=== PATIENT | male | born 1985 | race Caucasian/White ===

== ENCOUNTER 2018-01-21 01:55 | Emergency (ER) | payer SELFPAY ==
[2018-01-21] MEDS ORDERED: MORPHINE 4 MG/ML SYR ONE (02:25)
[2018-01-21] MEDS ORDERED: ONDANSETRON 4 MG/2 ML VIAL ONE (02:25)
[2018-01-21] MEDS ORDERED: NA CHLORIDE 0.9% 1,000 ML ONE (02:25)
[2018-01-21 02:55] LABS: Urine Blood 2+ (NEG); Urine Glucose NEGATIVE (NEG); Urine Protein NEGATIVE (NEG); Urine Specific Gravity >1.030 (1.005-1.030); Urine pH 5.5 (5.0-7.0)
[2018-01-21 02:55] LABS: Absolute Lymphocytes (CBC) 3.2 K/uL (0.7-4.9); Absolute Monocytes 1.4 K/uL (0.1-1.3); Absolute Neutrophil 15.9 K/uL (1.8-8.0); Basophils % 0.3 % (0-1.3); Hematocrit 43.4 % (39.6-49.0); Lymphocytes % 15.5 % (15.3-44.8); MCH 30.6 pg (27.0-35.0); MCV 89.5 fL (80-100); MPV 7.9 fL (7.6-11.3); Monocytes % 6.6 % (3.3-12.3); RBC Red Blood Cell Count 4.85 M/uL (4.33-5.43)
[2018-01-21 03:13] LABS: Albumin 4.3 g/dL (3.4-5.0); Bilirubin Direct 0.1 mg/dL (0-0.2); Bilirubin Total 0.4 mg/dL (0.2-1.0); Potassium 3.9 mmol/L (3.5-5.1); Protein, Total 7.8 g/dL (6.4-8.2)
[2018-01-21] MEDS ORDERED: NA CHLORIDE 0.9% 50 ML IV ONE (03:32)
[2018-01-21] MEDS ORDERED: KETOROLAC 30 MG/ML INJ ONE (03:32)
[2018-01-21] MEDS ORDERED: TAMSULOSIN 0.4 MG SR CAP ONE (03:32)
[2018-01-21] MEDS ORDERED: CEFTRIAXONE 1000 MG/VIAL ONE (03:32)
[2018-01-21 03:43] LABS: Calcium Oxalate Crystals- Ur FEW (NONE SEEN); Urine Bacteria <20 /HPF (NONE SEEN); Urine Culture Reflex Order NOT NEEDED; Urine Mucus HEAVY /HPF (NONE SEEN); Urine RBC <5 /HPF (NONE SEEN)
--- NOTE | 2018-01-21 04:48 | ER ---
Nurse's Notes [facility] Name: Toan Ochoa Age: 32 yrs Sex: Male : 1985 Arrival Date: 01/21/2018 Time: 01:57 Bed 6 Private MD: Diagnosis: Hydronephrosis with renal and ureteral calculous obstruction;Elevated white blood cell count Presentation: 01/21 02:06 Presenting complaint: Patient states: he woke up with right sided pain about 2 weeks bb ago he passed a kidney stone on the left side he is also having difficulty urinating. Transition of care: patient was not received from another setting of care. Onset of symptoms was January 21, 2018. Risk Assessment: Do you want to hurt yourself or someone else? Patient reports no desire to harm self or others. Initial Sepsis Screen: Does the patient meet any 2 criteria? No. Patient's initial sepsis screen is negative. Does the patient have a suspected source of infection? No. Patient's initial sepsis screen is negative. Care prior to arrival: None. 02:06 Method Of Arrival: Ambulatory bb 02:06 Acuity: SVITLANA 3 bb Historical: - Allergies: 02:10 No Known Allergies; bb - Home Meds: 02:10 None [Active]; bb - PMHx: 02:10 Kidney stones; bb - PSHx: 02:10 None; bb - Immunization history:: Adult Immunizations up to date. - Social history:: Smoking status: Patient uses tobacco products, smokes one pack cigarettes per day. Patient uses alcohol, occasionally. Patient/guardian denies using street drugs. - Ebola Screening: : No symptoms or risks identified at this time. Screenin:13 Abuse screen: Denies threats or abuse. Denies injuries from another. Nutritional ak1 screening: No deficits noted. Tuberculosis screening: No symptoms or risk factors identified. Fall Risk None identified. Assessment: 02:13 General: Appears uncomfortable, Behavior is cooperative. Pain: Complains of pain in ak1 right lower abd, right flank. Neuro: No deficits noted. Cardiovascular: No deficits noted. Respiratory: No deficits noted. GI: No signs and/or symptoms were reported involving the gastrointestinal system. : Reports pain in right flank(s). EENT: No signs and/or symptoms were reported regarding the EENT system. Derm: No signs and/or symptoms reported regarding the dermatologic system. Musculoskeletal: No signs and/or symptoms reported regarding the musculoskeletal system. 03:12 Reassessment: LAB ALERT VALUE WBC 20.7, NOTIFIED. bp Vital Signs: 02:10 BP 137 / 91; Pulse 46; Resp 18 S; Temp 98.6(O); Pulse Ox 97% on R/A; Weight 72.57 kg bb (R); Height 5 ft. 10 in. (177.80 cm) (R); Pain 7/10; 02:10 Body Mass Index 22.96 (72.57 kg, 177.80 cm) bb ED Course: 01:57 Patient arrived in ED. ds1 02:09 Triage completed. bb 02:10 Arm band placed on Patient placed in an exam room, on a stretcher, on pulse oximetry. bb Family accompanied patient. 02:13 Gay Zamorano, RN is Primary Nurse. ak1 02:13 Patient has correct armband on for positive identification. Bed in low position. Call ak1 light in reach. Side rails up X 1. Pulse ox on. NIBP on. 02:15 Initial lab(s) drawn, by me, sent to lab. Urine collected: clean catch specimen. ak1 Inserted saline lock: 20 gauge in right antecubital area, using aseptic technique. Blood collected. 02:19 Dakota Arroyo MD is Attending Physician. anita 03:21 CT completed. Pt tolerated procedure poorly. Patient moved to CT via stretcher. Patient eh moved back from CT. 03:29 CT Stone Protocol In Process Unspecified. EDMS 03:42 Patient moved to radiology via stretcher. kw 03:42 X-ray completed. Patient tolerated procedure well. kw 03:42 Patient moved back from radiology. kw 03:42 Abdomen 1 View (KUB) XRAY In Process Unspecified. EDMS 04:34 No provider procedures requiring assistance completed. ak1 04:48 Jan Li MD is Referral Physician. anita 04:58 IV discontinued, intact, bleeding controlled, No redness/swelling at site. Pressure ak1 dressing applied. Administered Medications: 02:23 Drug: Zofran 4 mg Route: IVP; Site: right antecubital; bp 03:21 Follow up: Response: No adverse reaction ak1 02:23 Drug: morphine 4 mg Route: IVP; Site: right antecubital; bp 03:21 Follow up: Response: No adverse reaction ak1 02:23 Drug: NS 0.9% 1000 ml Route: IV; Rate: 1 bolus; Site: right antecubital; bp 05:00 Follow up: IV Status: Completed infusion ak1 03:25 Drug: TORadol 30 mg Route: IVP; Site: right antecubital; cc3 04:33 Follow up: Response: No adverse reaction ak1 03:25 Drug: Flomax 0.4 mg Route: PO; cc3 04:34 Follow up: Response: No adverse reaction ak1 03:30 Drug: Rocephin - (cefTRIAXone) 1 grams Route: IVPB; Infused Over: 30 mins; Site: right ak1 antecubital; 04:57 Follow up: IV Status: Completed infusion ak1 Outcome: 04:48 Discharge ordered by MD. howard 04:58 Discharged to home ambulatory, with family. ak1 04:58 Condition: improved 04:58 Discharge instructions given to patient, family, Instructed on discharge instructions, follow up and referral plans. no drinking with medication, no driving heavy equipment, medication usage, Demonstrated understanding of instructions, follow-up care, medications, Prescriptions given X 4. 04:59 Patient left the ED. ak1 Signatures: Dispatcher [employer] EDMS Dakota Arroyo MD MD cha Hagler, Ervin eh Sanford, Demi ds1 Madeleine Brewster, RN RN Margarita Santana Amber, RN RN ak1 Carlos Plata RN RN Nidia Gallegos cc3
--- NOTE | 2018-01-21 04:48 | EDPHYS ---
Physician Documentation [facility] Name: Toan Ochoa Age: 32 yrs Sex: Male : 1985 Arrival Date: 01/21/2018 Time: 01:57 Bed 6 Private MD: ED Physician Dakota Arroyo HPI: 01/21 03:12 This 32 yrs old Male presents to ER via Ambulatory with complaints of R Side anita Abd Pain. 03:12 The patient complains of pain in the right mid back and right low back. The pain does anita not radiate. Onset: The symptoms/episode began/occurred just prior to arrival. Modifying factors: The symptoms are alleviated by nothing. the symptoms are aggravated by nothing. Associated signs and symptoms: The patient has no apparent associated signs or symptoms. Severity of pain: At its worst the pain was moderate severe in the emergency department the pain is unchanged. The patient has not experienced similar symptoms in the past. Historical: - Allergies: 02:10 No Known Allergies; bb - Home Meds: 02:10 None [Active]; bb - PMHx: 02:10 Kidney stones; bb - PSHx: 02:10 None; bb - Immunization history:: Adult Immunizations up to date. - Social history:: Smoking status: Patient uses tobacco products, smokes one pack cigarettes per day. Patient uses alcohol, occasionally. Patient/guardian denies using street drugs. - Ebola Screening: : No symptoms or risks identified at this time. ROS: 03:13 Constitutional: Negative for fever, chills, and weight loss, Eyes: Negative for injury, anita pain, redness, and discharge, ENT: Negative for injury, pain, and discharge, Neck: Negative for injury, pain, and swelling, Cardiovascular: Negative for chest pain, palpitations, and edema, Respiratory: Negative for shortness of breath, cough, wheezing, and pleuritic chest pain, Abdomen/GI: Negative for abdominal pain, nausea, vomiting, diarrhea, and constipation, Back: Negative for injury and pain, MS/Extremity: Negative for injury and deformity, Skin: Negative for injury, rash, and discoloration, Neuro: Negative for headache, weakness, numbness, tingling, and seizure, Psych: Negative for depression, anxiety, suicide ideation, homicidal ideation, and hallucinations, Allergy/Immunology: Negative for hives, rash, and allergies, Endocrine: Negative for neck swelling, polydipsia, polyuria, polyphagia, and marked weight changes. 03:13 : Positive for flank pain, of the right mid back and right low back. Exam: 03:13 Constitutional: This is a well developed, well nourished patient who is awake, alert, anita and in no acute distress. Head/Face: Normocephalic, atraumatic. Eyes: Pupils equal round and reactive to light, extra-ocular motions intact. Lids and lashes normal. Conjunctiva and sclera are non-icteric and not injected. Cornea within normal limits. Periorbital areas with no swelling, redness, or edema. ENT: Nares patent. No nasal discharge, no septal abnormalities noted. Tympanic membranes are normal and external auditory canals are clear. Oropharynx with no redness, swelling, or masses, exudates, or evidence of obstruction, uvula midline. Mucous membranes moist. Neck: Trachea midline, no thyromegaly or masses palpated, and no cervical lymphadenopathy. Supple, full range of motion without nuchal rigidity, or vertebral point tenderness. No Meningismus. Chest/axilla: Normal chest wall appearance and motion. Nontender with no deformity. No lesions are appreciated. Cardiovascular: Regular rate and rhythm with a normal S1 and S2. No gallops, murmurs, or rubs. Normal PMI, no JVD. No pulse deficits. Respiratory: Lungs have equal breath sounds bilaterally, clear to auscultation and percussion. No rales, rhonchi or wheezes noted. No increased work of breathing, no retractions or nasal flaring. Abdomen/GI: Soft, non-tender, with normal bowel sounds. No distension or tympany. No guarding or rebound. No evidence of tenderness throughout. Male : Normal genitalia with no discharge or lesions. Skin: Warm, dry with normal turgor. Normal color with no rashes, no lesions, and no evidence of cellulitis. MS/ Extremity: Pulses equal, no cyanosis. Neurovascular intact. Full, normal range of motion. Neuro: Awake and alert, GCS 15, oriented to person, place, time, and situation. Cranial nerves II-XII grossly intact. Motor strength 5/5 in all extremities. Sensory grossly intact. Cerebellar exam normal. Normal gait. Psych: Awake, alert, with orientation to person, place and time. Behavior, mood, and affect are within normal limits. 03:13 Back: pain, that is mild, that is moderate, ROM is normal, normal spinal alignment noted, CVA tenderness, that is moderate, is noted on the right. Vital Signs: 02:10 BP 137 / 91; Pulse 46; Resp 18 S; Temp 98.6(O); Pulse Ox 97% on R/A; Weight 72.57 kg bb (R); Height 5 ft. 10 in. (177.80 cm) (R); Pain 7; 02:10 Body Mass Index 22.96 (72.57 kg, 177.80 cm) bb MDM: 02:19 Patient medically screened. [facility] 01/21 02:16 Order name: Basic Metabolic Panel; Complete Time: 03:16 [facility] 01/21 02:16 Order name: CBC with Diff [facility] 01/21 02:17 Order name: Creatinine for Radiology; Complete Time: 03:16 [facility] 01/21 02:17 Order name: Hepatic Function; Complete Time: 03:16 [facility] 01/21 02:17 Order name: Lipase; Complete Time: 03:16 [facility] 01/21 02:27 Order name: Urine Culture [facility] 01/21 02:17 Order name: CT Stone Protocol [facility] 01/21 02:27 Order name: Urine Microscopic Only [facility] 01/21 02:39 Order name: Urine Dipstick--Ancillary (enter results); Complete Time: 03:12 mw2 01/21 03:11 Order name: Abdomen 1 View (KUB) XRAY [facility] 01/21 04:56 Order name: Manual Differential EDNM 01/21 02:17 Order name: IV Saline Lock; Complete Time: 02:17 [facility] 01/21 02:17 Order name: Labs collected and sent; Complete Time: 02:17 [facility] Administered Medications: 02:23 Drug: Zofran 4 mg Route: IVP; Site: right antecubital; bp 03:21 Follow up: Response: No adverse reaction ak1 02:23 Drug: morphine 4 mg Route: IVP; Site: right antecubital; bp 03:21 Follow up: Response: No adverse reaction ak1 02:23 Drug: NS 0.9% 1000 ml Route: IV; Rate: 1 bolus; Site: right antecubital; bp 05:00 Follow up: IV Status: Completed infusion ak1 03:25 Drug: TORadol 30 mg Route: IVP; Site: right antecubital; cc3 04:33 Follow up: Response: No adverse reaction ak1 03:25 Drug: Flomax 0.4 mg Route: PO; cc3 04:34 Follow up: Response: No adverse reaction ak1 03:30 Drug: Rocephin - (cefTRIAXone) 1 grams Route: IVPB; Infused Over: 30 mins; Site: right ak1 antecubital; 04:57 Follow up: IV Status: Completed infusion ak1 Disposition: 01/21/18 04:48 Discharged to Home. Impression: Hydronephrosis with renal and ureteral calculous obstruction, Elevated white blood cell count. - Condition is Stable. - Discharge Instructions: Kidney Stones, Kidney Stones, [id number], Hydronephrosis, Dietary Guidelines to Help Prevent Kidney Stones. - Prescriptions for Tylenol- Codeine #3 300-30 mg Oral Tablet - take 2 tablet by ORAL route every 6 hours As needed; 30 tablet. Zofran 4 mg Oral Tablet - take 1 tablet by ORAL route every 12 hours As needed; 20 tablet. Flomax 0.4 mg Oral Capsule, Sust. Release 24 hr - take 1 capsule by ORAL route once daily 1/2 hour following the same meal each day; 30 capsule. Cipro 500 mg Oral Tablet - take 1 tablet by ORAL route every 12 hours for 7 days; 14 tablet. - Medication Reconciliation Form, Thank You Letter, Antibiotic Education, Prescription Opioid Use form. - Follow up: Private Physician; When: 2 - 3 days; Reason: Recheck today's complaints, Continuance of care, Re-evaluation by your physician. Follow up: Jan Li; When: 2 - 3 days; Reason: Recheck today's complaints, Re-evaluation by your physician. - Problem is new. - Symptoms have improved. Signatures: Dispatcher [employer] EDDakota Maciel MD MD cha Ballard, Brenda RN RN Gay Cutler RN RN akCarlos Crawford, RN RN Nidia Gallegos cc3 Corrections: (The following items were deleted from the chart) 04:59 04:48 01/21/2018 04:48 Discharged to Home. Impression: Hydronephrosis with renal and ak1 ureteral calculous obstruction; Elevated white blood cell count. Condition is Stable. Discharge Instructions: Kidney Stones, Kidney Stones, [id number], Hydronephrosis, Dietary Guidelines to Help Prevent Kidney Stones. Prescriptions for Tylenol-Codeine #3 300-30 mg Oral Tablet - take 2 tablet by ORAL route every 6 hours As needed; 30 tablet, Zofran 4 mg Oral Tablet - take 1 tablet by ORAL route every 12 hours As needed; 20 tablet, Flomax 0.4 mg Oral Capsule, Sust. Release 24 hr - take 1 capsule by ORAL route once daily 1/2 hour following the same meal each day; 30 capsule, Cipro 500 mg Oral Tablet - take 1 tablet by ORAL route every 12 hours for 7 days; 14 tablet. and Forms are Medication Reconciliation Form, Thank You Letter, Antibiotic Education, Prescription Opioid Use. Follow up: Private Physician; When: 2 - 3 days; Reason: Recheck today's complaints, Continuance of care, Re-evaluation by your physician. Follow up: Jan Li; When: 2 - 3 days; Reason: Recheck today's complaints, Re-evaluation by your physician. Problem is new. Symptoms have improved. anita
[2018-01-21 04:56] LABS: Blood Morphology Comment NOT SEEN (NOT SEEN); Platelet Estimate ADEQ
--- NOTE | 2018-01-21 13:37 | RAD REPORT ---
EXAM DESCRIPTION: CT - Stone Protocol - 01/21/2018 6:42 am CLINICAL HISTORY: Right-sided flank pain, history of left-sided kidney stone with passage 3 weeks ea rlier A preliminary report was provided at the time of the study and reviewed prior to final report. Due to hospital wide power failure, all overnight and morning reports have been delayed. COMPARISON: CT study August 2013 TECHNIQUE: Axial 5 mm thick images were obtained without oral or IV contrast. The [id number] span s the entirety of the system including uppermost abdomen and lung bases. All CT scans are performed using dose optimization technique as appropriate and may include automated exposure control or mA/KV adjustment according to patient size. FINDINGS: Mild right-sided hydronephrosis is present secondary to a 3 mm calcification of the distal right ureter. This is just proximal to the UVJ. Right kidney is slightly edematous. No other nonobst ructing calculi. No hydronephrosis on the left. No suspicious renal masses. Isodense masses and pyelo nephritis are not excluded on a stone protocol CT scan. Urinary bladder is contracted limiting detail . No bladder calculus seen. Phleboliths are seen in the pelvis. Imaged portions of the liver, spleen and pancreas show no suspicious findings on non-contrast imaging . No gallbladder or biliary tree abnormality identified. No significant adrenal finding. No suspicious bowel findings. Appendix is normal. No mass or bulky lymphadenopathy. Patient has a very small fat only umbilical hernia name small to mo derate fat only left inguinal hernia. No free air, free fluid or inflammatory stranding. No significant bony abnormality. IMPRESSION: Mild right-sided hydronephrosis secondary to a 3 millimeter distal ureteral calculus at the UVJ. Nonacute findings detailed in the body of the report. Isodense masses and pyelonephritis are not excluded on stone protocol technique.
--- NOTE | 2018-01-21 14:13 | RAD REPORT ---
EXAM DESCRIPTION: RAD - Abdomen 1 View (KUB) - 01/21/2018 3:47 am CLINICAL HISTORY: Right-sided abdominal pain, history of kidney stones Due to a system wide technical malfunction, all overnight and morning reports were delayed. COMPARISON: None. FINDINGS: Bowel gas pattern is non-specific. No obstruction, free air or pneumatosis. Small bowel l oops are prominent. Ileus is certainly possible. No suspicious calcifications. No significant bony findings IMPRESSION: No obstruction, free air or surgically emergent finding. Mild ileus or enteritis are possible.
== END 2018-01-21 04:59 | disposition home or self-care (01) ==
LOC: ER 01:55
DX: N13.2 Hydronephrosis with renal and ureteral calculous obstruction (principal); D72.829 Elevated white blood cell count, unspecified; F17.210 Nicotine dependence, cigarettes, uncomplicated
CPT/HCPCS: 36415; 74018; 74176; 76377; 80048; 80076; 81003; 81015; 83690; 85025; 87086; 87088; 96361; 96365; 96375; 99284; J2405; J7030